=== PATIENT | female | born 1965 | race Caucasian/White ===

== ENCOUNTER → 2022-04-05 | Outpatient (REF) | payer BC | LOC: M SFHCADAM 11:10 | PROVIDERS: ATTEND Physician Assistant | DX: Z53.20 Procedure and treatment not carried out because of patient's decision for unspecified reasons (principal) ==

== ENCOUNTER → 2022-04-14 | Outpatient (CLI) | payer BC ==
[2022-04-14 15:34] LABS: BASO # 0.1 10^3/uL (0.0-0.2); BASO % 0.5 % (0.0-1.0); EOS # 0.2 10^3/uL (0.0-0.5); EOS % 1.9 % (0.0-3.0); HEMATOCRIT 40.7 % (36.0-47.0); HEMOGLOBIN 13.3 g/dl (12.0-15.5); LYMPH # 2.9 10^3/uL (1.5-5.0); LYMPH % 28.6 % (24.0-44.0); MEAN CORPUSCULAR HEMOGLOBIN 30.9 pg (27.0-33.0); MEAN CORPUSCULAR HGB CONC 32.7 g/dl (32.0-36.5); MEAN CORPUSCULAR VOLUME 94.4 fl (80.0-96.0); MONO # 0.7 10^3/uL (0.0-0.8); MONO % 6.4 % (2.0-8.0); NEUTROPHILS # 6.3 10^3/uL (1.5-8.5); NEUTROPHILS % 62.3 % (36.0-66.0); PLATELET COUNT, AUTOMATED 220 10^3/uL (150-450); RED BLOOD COUNT 4.31 10^6/uL (4.00-5.40); WHITE BLOOD COUNT 10.2 10^3/uL (4.0-10.0)
[2022-04-14 16:00] LABS: MAU/CREAT RATIO 5.6 MCG/MG (0.0-30.0)
[2022-04-14 16:02] LABS: TOTAL IRON BINDING CAPACITY 329 UG/DL (250-425)
[2022-04-14 16:03] LABS: ALBUMIN 4.3 G/DL (3.2-5.2); ALKALINE PHOSPHATASE 83 U/L (46-116); ALT/SGPT 22 U/L (7.0-40); AST/SGOT 28 U/L (<34); BILIRUBIN,TOTAL 0.7 MG/DL (0.3-1.2); BLOOD UREA NITROGEN 29 MG/DL (9-23); CALCIUM LEVEL 9.7 MG/DL (8.5-10.1); CARBON DIOXIDE LEVEL 29 MMOL/L (20-31); CHLORIDE LEVEL 100 MMOL/L (98-107); CHOLESTEROL LEVEL 144 MG/DL (<200); CHOLESTEROL RISK RATIO 3.05 (<5); CREATININE FOR GFR 0.61 MG/DL (0.55-1.30); GLOMERULAR FILTRATION RATE > 60.0 (>51); GLUCOSE, FASTING 111 MG/DL (60-100); HDL CHOLESTEROL 47.2 MG/DL (>40); IRON (FE) 84 UG/DL (50-170); NON-HDL-C 97 MG/DL; PERCENT SATURATION 25.5 % (13.2-45.0); POTASSIUM SERUM 4.4 MMOL/L (3.5-5.1); SODIUM LEVEL 139 MMOL/L (136-145); TOTAL PROTEIN 6.7 G/DL (5.7-8.2); TRIGLYCERIDES LEVEL 119 MG/DL (<150)
[2022-04-14 16:07] LABS: HEMOGLOBIN A1c 5.4 % (4.0-6.0)
[2022-04-14 16:09] LABS: FERRITIN 45.3 NG/ML (7.3-270.7); THYROID STIMULATING HORMONE 2.547 uIU/ML (0.55-4.78); TOTAL 25(OH) VITAMIN D 39.3 NG/ML (20.0-100.0)
== END ==
LOC: M PLALAB 12:48
PROVIDERS: ATTEND Physician Assistant
DX: I10 Essential (primary) hypertension (principal); E78.5 Hyperlipidemia, unspecified; Z13.29 Encounter for screening for other suspected endocrine disorder; Z13.1 Encounter for screening for diabetes mellitus

== ENCOUNTER → 2022-12-06 | Outpatient (CLI) | payer BC | LOC: M WHC 15:11 | PROVIDERS: ATTEND Physician Assistant | DX: Z12.31 Encounter for screening mammogram for malignant neoplasm of breast (principal) ==

== ENCOUNTER → 2023-01-31 | Outpatient (REF) | payer BC | LOC: M SFHCWAGY 13:29 | PROVIDERS: ATTEND Nurse Practitioner Family | DX: Z12.4 Encounter for screening for malignant neoplasm of cervix (principal); N95.2 Postmenopausal atrophic vaginitis | CPT/HCPCS: 87624; G0123 ==

== ENCOUNTER → 2023-04-08 | Outpatient (REF) | payer BC ==
[2023-04-08 14:01] LABS: BASO # 0.1 10^3/uL (0.0-0.2); BASO % 0.6 % (0.0-1.0); EOS # 0.2 10^3/uL (0.0-0.5); HEMATOCRIT 42.2 % (36.0-47.0); HEMOGLOBIN 14.1 g/dl (12.0-15.5); LYMPH # 2.2 10^3/uL (1.5-5.0); LYMPH % 25.9 % (24.0-44.0); MEAN CORPUSCULAR HEMOGLOBIN 30.7 pg (27.0-33.0); MEAN CORPUSCULAR HGB CONC 33.4 g/dl (32.0-36.5); MEAN CORPUSCULAR VOLUME 91.7 fl (80.0-96.0); MONO # 0.6 10^3/uL (0.0-0.8); MONO % 7.1 % (2.0-8.0); NEUTROPHILS # 5.5 10^3/uL (1.5-8.5); NEUTROPHILS % 64.3 % (36.0-66.0); PLATELET COUNT, AUTOMATED 199 10^3/uL (150-450); WHITE BLOOD COUNT 8.5 10^3/uL (4.0-10.0)
[2023-04-08 14:22] LABS: HEMOGLOBIN A1c 5.4 % (4.0-6.0)
[2023-04-08 14:44] LABS: ALBUMIN 4.4 G/DL (3.2-5.2); ALKALINE PHOSPHATASE 84 U/L (46-116); ALT/SGPT 22 U/L (7.0-40); AST/SGOT 26 U/L (<34); BILIRUBIN,TOTAL 0.8 MG/DL (0.3-1.2); BLOOD UREA NITROGEN 13 MG/DL (9-23); CALCIUM LEVEL 9.6 MG/DL (8.5-10.1); CARBON DIOXIDE LEVEL 29 MMOL/L (20-31); CHLORIDE LEVEL 102 MMOL/L (98-107); CHOLESTEROL LEVEL 176 MG/DL (<200); CHOLESTEROL RISK RATIO 3.46 (<5); FREE T4 1.03 NG/DL (0.89-1.76); GLOMERULAR FILTRATION RATE > 60.0 (>51); GLUCOSE, FASTING 82 MG/DL (60-100); HDL CHOLESTEROL 50.8 MG/DL (>40); NON-HDL-C 125.2 MG/DL; POTASSIUM SERUM 4.3 MMOL/L (3.5-5.1); SODIUM LEVEL 140 MMOL/L (136-145); THYROID STIMULATING HORMONE 2.862 uIU/ML (0.55-4.78); TOTAL 25(OH) VITAMIN D 58.1 NG/ML (20.0-100.0); TOTAL PROTEIN 6.9 G/DL (5.7-8.2); TRIGLYCERIDES LEVEL 116 MG/DL (<150)
== END ==
LOC: M SFHCADAM 10:59
PROVIDERS: ATTEND Physician Assistant
DX: I10 Essential (primary) hypertension (principal); E78.5 Hyperlipidemia, unspecified; Z13.29 Encounter for screening for other suspected endocrine disorder; Z13.1 Encounter for screening for diabetes mellitus; Z13.21 Encounter for screening for nutritional disorder

== ENCOUNTER → 2024-03-27 | Outpatient (CLI) | payer OTHER ==
[2024-03-27 11:02] LABS: BASO # 0.1 10^3/uL (0.0-0.2); BASO % 0.6 % (0.0-1.0); EOS # 0.2 10^3/uL (0.0-0.5); EOS % 1.9 % (0.0-3.0); HEMATOCRIT 43.6 % (36.0-47.0); HEMOGLOBIN 14.4 g/dl (12.0-15.5); LYMPH # 2.2 10^3/uL (1.5-5.0); LYMPH % 28.3 % (24.0-44.0); MEAN CORPUSCULAR HEMOGLOBIN 30.8 pg (27.0-33.0); MEAN CORPUSCULAR VOLUME 93.2 fl (80.0-96.0); MONO # 0.6 10^3/uL (0.0-0.8); MONO % 8.1 % (2.0-8.0); NEUTROPHILS # 4.7 10^3/uL (1.5-8.5); PLATELET COUNT, AUTOMATED 208 10^3/uL (150-450); RED BLOOD COUNT 4.68 10^6/uL (4.00-5.40); WHITE BLOOD COUNT 7.8 10^3/uL (4.0-10.0)
[2024-03-27 11:15] LABS: HEMOGLOBIN A1c 5.6 % (4.0-6.0)
[2024-03-27 11:28] LABS: ALBUMIN 4.4 G/DL (3.2-5.2); ALKALINE PHOSPHATASE 87 U/L (35-104); ALT/SGPT 22 U/L (7.0-40); AST/SGOT 21 U/L (<34); BILIRUBIN,TOTAL 0.9 MG/DL (0.3-1.2); BLOOD UREA NITROGEN 16 MG/DL (9-23); CALCIUM LEVEL 9.9 MG/DL (8.5-10.1); CARBON DIOXIDE LEVEL 31 MMOL/L (20-31); CHLORIDE LEVEL 103 MMOL/L (98-107); CHOLESTEROL LEVEL 190 MG/DL (<200); CHOLESTEROL RISK RATIO 3.52 (<5); GLOMERULAR FILTRATION RATE > 60.0 (>51); GLUCOSE, FASTING 95 MG/DL (60-100); HDL CHOLESTEROL 53.9 MG/DL (>40); LDL CHOLESTEROL 112.7 MG/DL (<100); NON-HDL-C 136.1 MG/DL; POTASSIUM SERUM 4.2 MMOL/L (3.5-5.1); SODIUM LEVEL 140 MMOL/L (136-145); TOTAL PROTEIN 7.2 G/DL (5.7-8.2); TRIGLYCERIDES LEVEL 117 MG/DL (<150)
[2024-03-27 11:29] LABS: FREE T4 1.05 NG/DL (0.89-1.76); TOTAL 25(OH) VITAMIN D 43.8 NG/ML (20.0-100.0)
[2024-03-27 14:02] LABS: THYROID STIMULATING HORMONE 3.368 uIU/ML (0.55-4.78)
== END ==
LOC: M PLALAB 09:19
PROVIDERS: ATTEND Physician Assistant
DX: I10 Essential (primary) hypertension (principal); E78.5 Hyperlipidemia, unspecified

== ENCOUNTER → 2024-03-28 | Outpatient (CLI) | payer OTHER | LOC: M ADAMS 10:40 | PROVIDERS: ATTEND Physician Assistant | DX: S52.572D Other intraarticular fracture of lower end of left radius, subsequent encounter for closed fracture with routine healing (principal); S52.615D Nondisplaced fracture of left ulna styloid process, subsequent encounter for closed fracture with routine healing ==